=== PATIENT | male | born 1990 | race Caucasian/White ===

== ENCOUNTER 2022-01-18 18:14 | Emergency (ER) | payer MEDICAID, OTHER ==
[~2022-01-18] VITALS: Ht 188 cm; Wt 95.0 kg
[~2022-01-18 18:14] MED LIST: PRED50TA PO
[2022-01-18 18:20] VITALS: BP 133/85
[2022-01-18] MEDS ORDERED: ketorolac trometh inj. 60 MG/2 ML VIAL IM ONE (19:50)
== END 2022-01-18 20:06 | disposition home or self-care (01) ==
LOC: ER 18:15
DX: S20.211D Contusion of right front wall of thorax, subsequent encounter (principal); W11.XXXA Fall on and from ladder, initial encounter; Y93.89 Activity, other specified; Y92.89 Other specified places as the place of occurrence of the external cause; Y99.8 Other external cause status
CPT/HCPCS: 71046; 96372; 99283; J1885